=== PATIENT | male | born 1990 | race Caucasian/White ===

== ENCOUNTER 2017-03-12 21:48 | Emergency (ER) | payer OTHER ==
[~2017-03-12 21:48] MED LIST: ALIG4CAP PO; ARIP1TAB11 PO; B COCAP4 PO; DOCU1CAP39 PO; LINA290C PO; NEUR600T PO; PROP20TA24 PO
[2017-03-12 21:55] VITALS: BP 124/72
[2017-03-12] MEDS ORDERED: LORazepam 2 MG/ML VIAL IM ONE (22:00)
[2017-03-12] MEDS ORDERED: HALOPERIDOL LACTATE 5 MG/ML AMP IM ONE (22:00)
[2017-03-12 22:13] VITALS: BP 124/72; PULSE 94; RESP 16; TEMP 98.5; O2SAT 100
--- NOTE | 2017-03-12 22:22 | PD ---
HPI Chief Complaint: Psychiatric Symptoms Time Seen by Provider: 22:18 Travel History International Travel<30 days: No Contact w/Intl Traveler<30days: No Traveled to known affect area: No History of Present Illness HPI 27-year-old male that presents to the ED for evaluation of psychiatric illness. Patient was Brandon acted by police after apparently he became very agitated and delusional to family. Patient has a history of autism and bipolar disorder as well as psychosis and schizophrenia. He apparently has been taking his medications. Per Brandon act and police report he appears to be more delusional and hallucinating. On my examination I cannot really get any history from him as he does appear to be somewhat agitated but does appear to be interacting with internal stimuli. He would not really answer any questions. He had to be escorted by multiple police here as he will not cooperate with them. Here his been less combative. He denies any medical issues. Most of the history is obtained from the police report as well as from the Brandon act as well as the medical records. No obvious signs of trauma noted. Unclear if any substance abuse has been use. PFSH Past Medical History Bipolar Disorder: Yes Depression: Yes Developmental Delay: Yes Headaches: Yes Migraines: Yes Sleep Apnea: Yes Social History Alcohol Use: No Tobacco Use: No Substance Use: No Allergies-Medications (Allergen,Severity, Reaction): Coded Allergies: azithromycin (Unverified Allergy, Severe, 03/11/17) risperidone (Unverified Allergy, Severe, 03/11/17) Uncoded Allergies: PATANASE NASAL SPRAY (Allergy, Severe, 09/09/14) Reported Meds & Prescriptions Reported Meds & Active Scripts Active Aripiprazole 5 Mg Tab 5 Mg PO DAILY 10 Days Reported Inderal (Propranolol HCl) 20 Mg Tab 20 Mg PO HS Gabapentin 600 Mg Tab 600 Mg PO TID Colace 100 Mg Cap (Docusate Sodium) 100 Mg Cap 100 Mg PO DAILY Align (Probiotic Product) 4 Mg Cap 1 PO DAILY Super B Complex/C (B Complex W/ C) Cap 1 Cap PO DAILY Linzess (Linaclotide) 290 Mcg Cap 290 Mcg PO DAILY@0600 Review of Systems ROS Limitations: Psychotic Except as stated in HPI: all other systems reviewed are Neg Physical Exam Exam Limitations: Psychotic Narrative GENERAL: SKIN: Warm and dry. HEAD: Atraumatic. Normocephalic. EYES: Pupils equal and round. No scleral icterus. No injection or drainage. ENT: No nasal bleeding or discharge. Mucous membranes pink and moist. Tongue is midline. No uvula deviation. NECK: Trachea midline. No JVD. CARDIOVASCULAR: Regular rate and rhythm. No murmurs, S3, S4. RESPIRATORY: No accessory muscle use. Clear to auscultation. Breath sounds equal bilaterally. GASTROINTESTINAL: Abdomen soft, non-tender, nondistended. Hepatic and splenic margins not palpable. MUSCULOSKELETAL: Extremities without clubbing, cyanosis, or edema. No obvious deformities. Full range of motion of the upper and lower extremities bilaterally. 2+ pulses bilaterally. NEUROLOGICAL: Awake and alert. No obvious cranial nerve deficits. Motor grossly within normal limits. Five out of 5 muscle strength in the arms and legs. Normal speech. PSYCHIATRIC: Psychotic mood and affect; insight and judgment unable to assess Data Data Last Documented VS Vital Signs Date Time Temp Pulse Resp B/P Pulse Ox O2 Delivery O2 Flow Rate FiO2 03/12/17 22:13 98.5 94 16 124/72 100 Room Air Orders Haloperidol Inj (Haldol Inj) (03/12/17 22:00) Lorazepam Inj (Ativan Inj) (03/12/17 22:00) Complete Blood Count With Diff (03/12/17 21:56) Comprehensive Metabolic Panel (03/12/17 21:56) Psych Screen (03/12/17 21:56) Drug Screen, Random Urine (03/12/17 21:56) Alcohol (Ethanol) (03/12/17 21:56) Salicylates (Aspirin) (03/12/17 21:56) Tylenol (Acetaminophen) (03/12/17 21:56) ^ Sitter (03/12/17 21:56) Diphenhydramine Inj (Benadryl Inj) (03/12/17 22:30) MDM Medical Decision Making Medical Screen Exam Complete: Yes Emergency Medical Condition: Yes Medical Record Reviewed: Yes Differential Diagnosis Depression versus suicidal ideation versus anxiety versus adjustment disorder versus mood disorder versus bipolar disorder versus schizophrenia versus paranoid disorder versus psychosis versus substance abuse versus alcohol abuse versus alcohol induced psychosis versus homicidality addition versus cutting versus personality disorder Narrative Course 27-year-old male that presents to the ED for evaluation of psych. Patient was properly examined and was found to have signs and symptoms consistent with acute psychosis. Unclear etiology. Patient does have significant history of psychiatric illness and has been here multiple times for same but has not been here in a while. Patient does appear to be actively psychotic and somewhat aggressive. Patient was medicated. Labs were ordered. A sitter was ordered. Patient will be medically clear pending labs. Okay to be seen by psych. Mental health screening was discussed with the patient. Diagnosis Primary Impression: Psychosis Qualified Code: F29 - Psychosis, unspecified psychosis type Rick Queen Mar 12, 2017 22:22
[2017-03-12] MEDS ORDERED: diphenhydrAMINE HCL 50 MG/ML VIAL IM ONE (22:30)
[2017-03-12 22:36] LABS: BASOPHIL % 0.5 % (0.0-2.0); EOSINOPHIL # 0.3 TH/MM3 (0-0.4); EOSINOPHIL % 3.5 % (0.0-4.0); HEMATOCRIT 44.5 % (39.0-51.0); HEMO FLAGS DIFF FINAL; LYMPH % 19.2 % (9.0-44.0); LYMPHOCYTE # 1.7 TH/MM3 (1.0-4.8); MEAN CELL VOLUME 87.8 FL (80.0-100.0); MEAN CORPUSCULAR HEMOGLOBIN 29.8 PG (27.0-34.0); MEAN CORPUSCULAR HGB CONC 33.9 % (32.0-36.0); MONO % 7.1 % (0.0-8.0); NEUT % 69.7 % (16.0-70.0); PLATELET COUNT 174 TH/MM3 (150-450); RED BLOOD COUNT 5.07 MIL/MM3 (4.50-5.90); RED CELL DISTRIBUTION WIDTH 12.5 % (11.6-17.2); WHITE BLOOD COUNT 8.6 TH/MM3 (4.0-11.0)
[2017-03-12 23:02] LABS: ALKALINE PHOSPHATASE 129 U/L (45-117); TOTAL BILIRUBIN ADULT 0.4 MG/DL (0.2-1.0)
[2017-03-12 23:08] LABS: ALT (GPT) 29 U/L (12-78); ANION GAP 5 MEQ/L (5-15); AST (GOT) 37 U/L (15-37); BICARBONATE 28.7 MEQ/L (21.0-32.0); BLOOD UREA NITROGEN 19 MG/DL (7-18); CHLORIDE 106 MEQ/L (98-107); GLOMERULAR FILTRATION RATE 76 ML/MIN (>89); POTASSIUM 4.5 MEQ/L (3.5-5.1); SODIUM (NA) 140 MEQ/L (136-145)
[2017-03-12 23:30] LABS: ACETAMINOPHEN LESS THAN 2.0 MCG/ML (10.0-30.0); ALCOHOL 3 MG/DL (0-5)
--- NOTE | 2017-03-12 23:39 | PD ---
Physical Exam Date Seen by Provider: Mar 12, 2017 Time Seen by Provider: 23:38 Narrative 27-year-old male who is suggestive was Brandon acted and brought by the police for being aggressive. He was seen by the PA earlier. Patient was chemically restrained and sign out was to follow-up on the labs. He'll require psych screen. Blood test results of back and within acceptable limits. Patient has become less aggressive at this point but still pacing up and down in the room. He is medically cleared. Awaiting for the psych screen. Data Data Last Documented VS Vital Signs Date Time Temp Pulse Resp B/P (MAP) Pulse Ox O2 Delivery O2 Flow Rate FiO2 03/13/17 11:10 98.3 83 18 119/89 (99) 99 03/13/17 07:30 Room Air Orders Orders Haloperidol Inj (Haldol Inj) (03/12/17 22:00) Lorazepam Inj (Ativan Inj) (03/12/17 22:00) Complete Blood Count With Diff (03/12/17 21:56) Comprehensive Metabolic Panel (03/12/17 21:56) Psych Screen (03/12/17 21:56) Drug Screen, Random Urine (03/12/17 21:56) Alcohol (Ethanol) (03/12/17 21:56) Salicylates (Aspirin) (03/12/17 21:56) Tylenol (Acetaminophen) (03/12/17 21:56) ^ Sitter (03/12/17 21:56) Diphenhydramine Inj (Benadryl Inj) (03/12/17 22:30) Diet Regular Basic (03/13/17 Breakfast) Labs Laboratory Tests Test 03/12/17 22:06 03/12/17 23:03 White Blood Count 8.6 TH/MM3 Red Blood Count 5.07 MIL/MM3 Hemoglobin 15.1 GM/DL Hematocrit 44.5 % Mean Corpuscular Volume 87.8 FL Mean Corpuscular Hemoglobin 29.8 PG Mean Corpuscular Hemoglobin Concent 33.9 % Red Cell Distribution Width 12.5 % Platelet Count 174 TH/MM3 Mean Platelet Volume 9.5 FL Neutrophils (%) (Auto) 69.7 % Lymphocytes (%) (Auto) 19.2 % Monocytes (%) (Auto) 7.1 % Eosinophils (%) (Auto) 3.5 % Basophils (%) (Auto) 0.5 % Neutrophils # (Auto) 6.0 TH/MM3 Lymphocytes # (Auto) 1.7 TH/MM3 Monocytes # (Auto) 0.6 TH/MM3 Eosinophils # (Auto) 0.3 TH/MM3 Basophils # (Auto) 0.0 TH/MM3 CBC Comment DIFF FINAL Differential Comment Blood Urea Nitrogen 19 MG/DL Creatinine 1.15 MG/DL Random Glucose 101 MG/DL Total Protein 8.1 GM/DL Albumin 4.2 GM/DL Calcium Level 9.1 MG/DL Alkaline Phosphatase 129 U/L Aspartate Amino Transf (AST/SGOT) 37 U/L Alanine Aminotransferase (ALT/SGPT) 29 U/L Total Bilirubin 0.4 MG/DL Sodium Level 140 MEQ/L Potassium Level 4.5 MEQ/L Chloride Level 106 MEQ/L Carbon Dioxide Level 28.7 MEQ/L Anion Gap 5 MEQ/L Estimat Glomerular Filtration Rate 76 ML/MIN Salicylates Level LESS THAN 1.7 MG/DL Acetaminophen Level LESS THAN 2.0 MCG/ML Ethyl Alcohol Level 3 MG/DL Urine Opiates Screen NEG Urine Barbiturates Screen NEG Urine Amphetamines Screen NEG Urine Benzodiazepines Screen NEG Urine Cocaine Screen NEG Urine Cannabinoids Screen NEG MDM Supervised Visit with SHAMIKA: Yes Diagnosis Primary Impression: Psychosis Andi Benitez MD Mar 12, 2017 23:39
[2017-03-13 07:30] VITALS: BP 119/81; PULSE 89; RESP 18; O2SAT 97
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
[2017-03-13 11:10] VITALS: BP 119/89; TEMP 98.3
== END 2017-03-13 11:00 | disposition home or self-care (01) ==
LOC: NEPE 21:48 → NEPD 03-13 11:00
DX: F43.20 Adjustment disorder, unspecified (principal); F84.0 Autistic disorder; F79 Unspecified intellectual disabilities
CPT/HCPCS: 80053; 80307; 85025; 96372; 99285; J1200; J1630; J2060

== ENCOUNTER 2017-03-24 23:20 | Emergency (ER) | payer OTHER ==
[~2017-03-24] VITALS: Ht 177.8 cm; Wt 77.0 kg
[2017-03-24 23:28] VITALS: BP 116/70; PULSE 104; RESP 16; O2SAT 96
[2017-03-25 00:24] LABS: AUTOMATED NEUTROPHIL # 9.1 TH/MM3 (1.8-7.7); BASOPHIL % 0.2 % (0.0-2.0); EOSINOPHIL # 0.1 TH/MM3 (0-0.4); EOSINOPHIL % 1.2 % (0.0-4.0); HEMATOCRIT 43.5 % (39.0-51.0); HEMO FLAGS DIFF FINAL; LYMPHOCYTE # 1.1 TH/MM3 (1.0-4.8); MEAN CELL VOLUME 87.7 FL (80.0-100.0); MEAN CORPUSCULAR HEMOGLOBIN 28.8 PG (27.0-34.0); MEAN CORPUSCULAR HGB CONC 32.9 % (32.0-36.0); MONO % 6.6 % (0.0-8.0); PLATELET COUNT 177 TH/MM3 (150-450); RED BLOOD COUNT 4.96 MIL/MM3 (4.50-5.90); RED CELL DISTRIBUTION WIDTH 12.7 % (11.6-17.2); WHITE BLOOD COUNT 11.1 TH/MM3 (4.0-11.0)
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
[2017-03-25] MEDS ORDERED: OLANZapine IM 10 MG VIAL IM ONE (00:30)
[2017-03-25 00:45] LABS: ALT (GPT) 16 U/L (12-78); ANION GAP 7 MEQ/L (5-15); AST (GOT) 23 U/L (15-37); BICARBONATE 29.5 MEQ/L (21.0-32.0); BLOOD UREA NITROGEN 17 MG/DL (7-18); CHLORIDE 103 MEQ/L (98-107); GLOMERULAR FILTRATION RATE 77 ML/MIN (>89); POTASSIUM 4.1 MEQ/L (3.5-5.1); SODIUM (NA) 139 MEQ/L (136-145)
[2017-03-25 00:47] LABS: ALKALINE PHOSPHATASE 116 U/L (45-117); TOTAL BILIRUBIN ADULT 0.3 MG/DL (0.2-1.0)
[2017-03-25 06:26] VITALS: BP 111/65; PULSE 72; RESP 16; TEMP 97.8; O2SAT 95
[2017-03-25] MEDS ORDERED: PROP60CA PO (06:43)
[2017-03-25] MEDS ORDERED: CLON1TAB PO (06:43)
[2017-03-25] MEDS ORDERED: GABA600T PO (06:43)
[2017-03-25] MEDS ORDERED: HALO5TAB PO (06:43)
[2017-03-25] MEDS ORDERED: COLA100C PO (06:43)
[2017-03-25] MEDS ORDERED: CLON0.5T PO (06:43)
[2017-03-25] MEDS ORDERED: SERO400T PO (06:43)
[2017-03-25] MEDS ORDERED: ROPI1TAB PO (06:43)
[2017-03-25] MEDS ORDERED: LEXA20TA PO (06:43)
[2017-03-25] MEDS ORDERED: LINA290C PO (06:43)
[2017-03-25 07:32] VITALS: BP 116/59; PULSE 77; RESP 17; TEMP 97.6; O2SAT 95
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
[2017-03-25 16:35] VITALS: BP 94/52; PULSE 62; RESP 16; TEMP 97.9; O2SAT 96
== END 2017-03-25 18:27 | disposition home or self-care (01) ==
LOC: NEDAMB 23:20 → NEPD 03-25 18:27
DX: F29 Unspecified psychosis not due to a substance or known physiological condition (principal); F84.0 Autistic disorder; G47.30 Sleep apnea, unspecified; Z79.899 Other long term (current) drug therapy; Z86.59 Personal history of other mental and behavioral disorders; Z86.69 Personal history of other diseases of the nervous system and sense organs
CPT/HCPCS: 80053; 80307; 85025; 96372